=== PATIENT | female | born 1980 | race Caucasian/White ===

== ENCOUNTER 2023-03-18 08:41 | Emergency (ER) | payer BC ==
[2023-03-18 09:24] LABS: RAPID STREP SCREEN Negative (Negative)
[2023-03-18 10:05] LABS: B. PARAPERTUSSIS- RESP PCR PAN NOT DETECTED; B. PERTUSSIS- RESP PCR PANEL NOT DETECTED; C. PNEUMONIAE- RESP PCR PANEL NOT DETECTED; CORONAVIRUS 229E-RESP PCR NOT DETECTED; CORONAVIRUS HKU1-RESP PCR NOT DETECTED; CORONAVIRUS NL63-RESP PCR NOT DETECTED; CORONAVIRUS OC43-RESP PCR NOT DETECTED; HUMAN METAPNEUMOVIRUS NOT DETECTED; INFLUENZA A- RESP PCR PANEL NOT DETECTED; INFLUENZA B - RESP PCR PANEL NOT DETECTED; M. PNEUMONIAE- RESP PCR PANEL NOT DETECTED; PARAINFLUENZA VIRUS 1 NOT DETECTED; PARAINFLUENZA VIRUS 2 NOT DETECTED; PARAINFLUENZA VIRUS 3 NOT DETECTED; PARAINFLUENZA VIRUS 4 NOT DETECTED; RHINOVIRUS/ENTEROVIRUS NOT DETECTED; RSV- RESP PCR PANEL NOT DETECTED; SARS-CoV-2 -RESP PCR PANEL NOT DETECTED
[2023-03-18] MEDS ORDERED: CHERRY SYRUP 10 ML UDC PO ONE (10:36)
[2023-03-18] MEDS ORDERED: DEXAMETHASONE 10 MG/ML VIAL PO STA (10:36)
[2023-03-18] MEDS ORDERED: IPRATROPIUM/ALBUTEROL 3 ML NEB INH STA (10:37)
--- NOTE | 2023-03-18 10:40 | ED Physician Documentation ---
PD HPI URI - Stated complaint Stated Complaint: SOA,CHEST CONGESTION - Chief complaint Chief Complaint: Resp - History obtained from History obtained from: Patient - History of Present Illness Timing - onset: How many days ago (5) Timing duration: Days (5) Timing details: Gradual onset, Still present Associated symptoms: Nasal congestion, Sore throat, Productive cough, Chest pain, Dyspnea Contributing factors: Sick contact Improves by: Rest, Medication Worsened by: Activity Similar symptoms before: Has not had sx before Recently seen: Not recently seen - Additional information Additional information: Dulce Maria Vincent a 42-year-old female who does not usually get sick. She has developed a cough and congestion about 5 days ago. She is bringing up some ye llow and green phlegm and she is having some shortness of breath associated with this. She is having some difficulty sleeping at night having to sit up straight and even then having some difficult time getting a full deep breath. She has developed some anterior chest pain associated with a deep breathing. She denies any sinus tenderness she is having some crackling in her ears and a sore throat. Review of Systems Constitutional: denies: Fever Eyes: denies: Decreased vision Ears: reports: Tinnitus/ringing Nose: reports: Rhinorrhea / runny nose, Congestion Throat: reports: Sore throat Cardiac: reports: Chest pain / pressure. denies: Palpitations, Pedal edema, Calf pain Respiratory: reports: Dyspnea, Cough, Wheezing GI: denies: Abdominal Pain, Nausea, Vomiting, Constipation, Diarrhea PD PAST MEDICAL HISTORY - Present Medications Home Medications: Ambulatory Orders Medication Instructions Recorded Confirmed Albuterol Sulf [Ventolin Hfa 1 - 2 puffs INH Q4HR PRN #1 each 03/18/23 Inhaler] Azithromycin [Zithromax] 250 mg PO DAILY #6 tablet 03/18/23 DULoxetine [Cymbalta] 60 mg PO DAILY 03/18/23 03/18/23 Levothyroxine [Synthroid] 100 mcg PO QDAC 03/18/23 03/18/23 predniSONE [Deltasone] 40 mg PO DAILY 5 Days #10 tablet 03/18/23 - Allergies Allergies/Adverse Reactions: Allergies Allergy/AdvReac Type Severity Reaction Status Date / Time No Known Drug Allergies Allergy Verified 03/18/23 08:48 PD ED PE NORMAL - Vitals Vital signs reviewed: Yes (hypertensive ) - General General: No acute distress, Well developed/nourished - HEENT HEENT: Atraumatic, PERRL, EOMI, Ears normal, Moist mucous membranes, Pharynx benign - Neck Neck: Supple, no meningeal sign, No bony TTP - Cardiac Cardiac: RRR, No murmur - Respiratory Respiratory: No respiratory distress, Other (markedly diminished breath sounds. ) - Abdomen Abdomen: Soft, Non tender, Other (obese) - Back Back: No CVA TTP, No spinal TTP - Derm Derm: Normal color, Warm and dry, No rash - Extremities Extremities: No deformity, No edema - Neuro Neuro: Alert and oriented X 3, motor teacher 2-12 intact, No motor deficit, No sensory deficit, Normal speech Eye Opening: Spontaneous Motor: Obeys Commands Verbal: Oriented GCS Score: 15 - Psych Psych: Normal mood, Normal affect Results - Vitals Vitals: Vital Signs - 24 hr 03/18/23 08:49 Temperature 36.1 C L Heart Rate 97 Respiratory 20 Rate Blood Pressure 152/110 H O2 Saturation 96 Oxygen O2 Source Room air - Labs Labs: Laboratory Tests 03/18/23 03/18/23 08:55 08:55 Nasal Adenovirus (PCR) NOT DETECTED Nasal B. parapertussis DNA (PCR) NOT DETECTED Nasal Coronavir 229E PCR NOT DETECTED Nasal Coronavir HKU1 PCR NOT DETECTED Nasal Coronavir NL63 PCR NOT DETECTED Nasal Coronavir OC43 PCR NOT DETECTED Nasal Enterovir/Rhinovir PCR NOT DETECTED Nasal Influenza B PCR NOT DETECTED Nasal Influenza A PCR NOT DETECTED Nasal Parainfluen 1 PCR NOT DETECTED Nasal Parainfluen 2 PCR NOT DETECTED Nasal Parainfluen 3 PCR NOT DETECTED Nasal Parainfluen 4 PCR NOT DETECTED Nasal RSV (PCR) NOT DETECTED Nasal B.pertussis DNA PCR NOT DETECTED Nasal C.pneumoniae (PCR) NOT DETECTED Shravan Human Metapneumo PCR NOT DETECTED Nasal M.pneumoniae (PCR) NOT DETECTED Nasal SARS-CoV-2 (PCR) NOT DETECTED Group A Strep Rapid Negative - Rads (name of study) chest Relevant Findings:: Prelim report reviewed (Impression: No acute radiographic abnormality. Low lung volumes, limited evaluation.), EMP independent interpretation of test PD Medical Decision Making - ED course Complexity details: reviewed results, re-evaluated patient, considered differential, d/w patient ED course: 42-year-old female with a respiratory illness has markedly decreased breath sounds on evaluation and she is coughing up yellow and green phlegm. She is reporting a very difficult time getting a full deep breath. On examination she has diminished breath sounds she does not have significant inflammation in the ear nose and throat she does have symptoms. She is administered dexamethasone a DuoNeb treatment and an x-ray is done demonstrating no obvious infiltrate. Departure - Departure Disposition: 01 Home, Self Care Clinical Impression: Bronchitis with bronchospasm Condition: Stable Instructions: ED Bronchitis Asthmatic Follow-Up: NICOLA MCWILLIAMS DO [Primary Care Provider] - Prescriptions: Albuterol Sulf [Ventolin Hfa Inhaler] 1 - 2 puffs INH Q4HR PRN #1 each PRN Reason: Shortness Of Air/Wheezing predniSONE [Deltasone] 40 mg PO DAILY 5 Days #10 tablet Azithromycin [Zithromax] 250 mg PO DAILY #6 tablet Comments: Dulce Maria, today it looks like you have a respiratory infection that is causing some problems with bronchospasm, or contraction of the muscles of the larger airways. This is usually from irritation from inflammation and when you are coughing up yellow and green phlegm there is usually some infection involved as well. We are providing some anti-inflammatory steroid. You were given a dose of dexamethasone today and you will not need to start your prednisone until tomorrow. I have E scribed some azithromycin to take to assist with cleaning up the infection. In addition I have E scribed an albuterol inhaler that you can use as often as every 2 hours if needed. If you are having to use this every 2 hours throughout the day come back to see us. Your viral swab was negative for all the viruses we test for.
--- NOTE | 2023-03-18 10:44 | XRAY Report ---
PROCEDURE: Chest 1 View X-Ray INDICATIONS: URI/chest pain TECHNIQUE: One view of the chest was acquired. COMPARISON: None. FINDINGS: Surgical changes and devices: None. Lungs and pleura: Low lung volumes. No dense consolidation or pleural effusion. Mediastinum: Mediastinal contours appear normal. Heart size is normal. Bones and chest wall: No suspicious bony lesions. Overlying soft tissues appear unremarkable. IMPRESSION: No acute radiographic abnormality. Low lung volumes, limiting evaluation. Reviewed by: Rashid Barrera MD on 03/18/2023 10:42 AM PDT Approved by: Rashid Barrera MD on 03/18/2023 10:42 AM PDT Station ID: [id number]
[2023-03-18 11:24] VITALS: BP 148/81
== END 2023-03-18 11:24 | disposition home or self-care (01) ==
LOC: ED 08:41
DX: J40 Bronchitis, not specified as acute or chronic (principal); Z20.822 Contact with and (suspected) exposure to COVID-19
CPT/HCPCS: 71045; 87070; 87430; 87633; 94640; 94664; 99284; A9270

== ENCOUNTER 2024-02-05 08:50 | Outpatient (CLI) | payer BC ==
[2024-02-05 12:42] LABS: ESTIMATED AVERAGE GLUCOSE 126 mg/dL (70-100)
[2024-02-05 12:48] LABS: ALBUMIN 4.3 g/dL (3.2-5.5); ALBUMIN/GLOBULIN RATIO 1.2 (1.0-2.2); BILIRUBIN,TOTAL 0.6 mg/dL (0.2-1.0); CALCIUM 9.7 mg/dL (8.5-10.3); CREATININE 0.8 mg/dL (0.6-1.3); POTASSIUM 4.2 mmol/L (3.5-4.5); TOTAL PROTEIN 7.8 g/dL (6.4-8.9)
[2024-02-05 13:06] LABS: THYROID STIMULATING HORMONE 5.74 uIU/mL (0.34-5.60)
== END 2024-02-05 08:51 | disposition home or self-care (01) ==
LOC: LAB.N 08:50
DX: Z01.812 Encounter for preprocedural laboratory examination (principal); E11.9 Type 2 diabetes mellitus without complications; E03.8 Other specified hypothyroidism; E66.01 Morbid (severe) obesity due to excess calories
CPT/HCPCS: 36415; 80053; 83036; 84443